=== PATIENT | female | born 1950 | race American Indian/Alaskan Native ===

== ENCOUNTER 2018-04-23 16:41 | Emergency (ER) | payer MEDICARE ==
[2018-04-23 18:33] LABS: Hematocrit 33.5 % (30.3-42.9); Hemoglobin 10.8 gm/dl (10.1-14.3); Mean Corpuscular HGB Conc 32 % (30-34); Mean Corpuscular Hemoglobin 27 pg (28-32); Mean Corpuscular Volume 84 fl (79-97); Platelet Count 296 K/mm3 (140-440); Red Blood Count 3.99 M/mm3 (3.65-5.03); Red Cell Distribution Width 15.3 % (13.2-15.2)
[2018-04-23 18:42] LABS: INR 0.98 (0.87-1.13); Partial Thromboplastin Time 22.9 Sec. (24.2-36.6)
[2018-04-23 19:03] LABS: Albumin 4.5 g/dL (3.9-5); Calcium 9.8 mg/dL (8.4-10.2)
--- NOTE | 2018-04-23 19:18 | Cat Scan Report ---
FINAL REPORT EXAM: CT HEAD/BRAIN WO CON HISTORY: head injury,+loc TECHNIQUE: Standard unenhanced CT of the head at 5.0 millimeter axial increments. PRIORS: None. FINDINGS: The ventricular system is normal in size and configuration. There is no evidence for parenchymal volume loss. There is no evidence for mass lesion, mass effect, midline shift, acute intracranial hemorrhage, or acute ischemia/ infarction. No evidence for acute skull fracture is seen. There is scalp swelling over the posterior left parietal region. Visualized paranasal sinuses are clear. IMPRESSION: Scalp swelling over the posterior left parietal region. No acute intracranial process noted.
[2018-04-23] MEDS ORDERED: ZOFRAN ODT PO ONE (19:58)
[2018-04-23] MEDS ORDERED: ALUM-MAG HYDROX-SIMETH 200-200-20MG/5ML PO ONE (19:58)
[2018-04-23] MEDS ORDERED: NORMODYNE PO ONE (20:11)
--- NOTE | 2018-04-23 20:11 | Emergency Department Report ---
ED General Adult HPI - General Chief complaint: Head Injury Stated complaint: HEAD AND STOMACH PAIN Time Seen by Provider: 04/23/18 19:42 Source: patient Mode of arrival: Ambulatory Limitations: No Limitations - History of Present Illness Initial comments: Ms. Morocho is a 67 yo female who presents after closed head injury on Friday 2 days prior. She felt so hot in the heat. Subsequently, she had brief loss of consciousness in the driveway hitting her head. left sided posterior hematoma and bleeding resulted. Patient has hx of CVA on ASA and Plavis. She is visiting from [place], [place] to care for her brother who has had CVA. She has n/v. Feels weak. Unable to keep down food. Posterior moderately severe headache. No chest pain. No palpitations. Severity scale (0 -10): 0 - Related Data Previous Rx's Medication Instructions Recorded Last Taken Type Ondansetron [Zofran Odt] 4 mg PO TID PRN #10 tab.rapdis 04/23/18 Unknown Rx Allergies Allergy/AdvReac Type Severity Reaction Status Date / Time No Known Allergies Allergy Unverified 04/23/18 17:30 ED Review of Systems ROS: Stated complaint: HEAD AND STOMACH PAIN Other details as noted in HPI Comment: All other systems reviewed and negative Constitutional: malaise. denies: fever Respiratory: denies: cough Cardiovascular: denies: chest pain ED Past Medical Hx - Past Medical History Previous Medical History?: Yes Hx Hypertension: Yes Hx CVA: Yes - Surgical History Past Surgical History?: Yes - Social History Smoking Status: Never Smoker Substance Use Type: None - Medications Home Medications: Home Medications Medication Instructions Recorded Confirmed Last Taken Type Ondansetron [Zofran Odt] 4 mg PO TID PRN #10 tab.rapdis 04/23/18 Unknown Rx ED Physical Exam - General Limitations: No Limitations General appearance: alert, in no apparent distress - Head Head exam: Present: normocephalic, other (2 cm small occipital hematoma no active bleeding) - Eye Eye exam: Present: normal appearance - ENT ENT exam: Present: mucous membranes moist - Neck Neck exam: Present: normal inspection. Absent: tenderness, meningismus - Respiratory Respiratory exam: Present: normal lung sounds bilaterally. Absent: respiratory distress, wheezes, rales, rhonchi - Cardiovascular Cardiovascular Exam: Present: regular rate, normal rhythm, normal heart sounds. Absent: bradycardia, tachycardia, systolic murmur, diastolic murmur, rubs, gallop - GI/Abdominal GI/Abdominal exam: Present: soft, normal bowel sounds. Absent: distended, tenderness, guarding, rebound - Extremities Exam Extremities exam: Present: normal inspection - Back Exam Back exam: Present: normal inspection - Neurological Exam Neurological exam: Present: alert, oriented X3, CN II-XII intact, normal gait, other (steady gait ). Absent: motor sensory deficit - Psychiatric Psychiatric exam: Present: normal affect, anxious - Skin Skin exam: Present: warm, dry, intact, normal color. Absent: rash ED Course Vital Signs 04/23/18 04/23/18 04/23/18 17:26 17:36 18:00 Temperature 98.1 F Pulse Rate 72 65 69 Respiratory 16 16 17 Rate Blood Pressure 190/81 156/69 Blood Pressure [Left] O2 Sat by Pulse 98 95 Oximetry 04/23/18 04/23/18 04/23/18 18:28 18:31 19:00 Temperature 98.7 F Pulse Rate 61 67 Respiratory 15 15 15 Rate Blood Pressure 165/77 Blood Pressure 156/69 [Left] O2 Sat by Pulse 98 98 95 Oximetry 04/23/18 04/23/18 04/23/18 20:01 21:00 21:07 Temperature Pulse Rate 79 59 L 73 Respiratory 14 17 Rate Blood Pressure 170/71 154/64 154/64 Blood Pressure [Left] O2 Sat by Pulse 98 95 Oximetry ED Medical Decision Making - Lab Data Result diagrams: 04/23/18 18:03 04/23/18 18:03 - Medical Decision Making 1. Closed Head Injury due to head trauma mild concussive symptoms. She tolerated PO in the ED. Repeat BP improved. 2. SYncope due to vasovagal reaction and heat exposure, I do not suspect ACS or arrhythmia or PE, only brief LOC rx: zofran Critical care attestation.: If time is entered above; I have spent that time in minutes in the direct care of this critically ill patient, excluding procedure time. ED Disposition Clinical Impression: Concussion, Hypertensive urgency Disposition: DC-01 TO HOME OR SELFCARE Is pt being admited?: No Does the pt Need Aspirin: No Condition: Stable Instructions: Concussion (ED) Prescriptions: Ondansetron [Zofran Odt] 4 mg PO TID PRN #10 tab.rapdis PRN Reason: Nausea And Vomiting Time of Disposition: 21:46
[2018-04-23 22:21] VITALS: BP 150/67
== END 2018-04-23 22:20 | disposition home or self-care (01) ==
LOC: ED 16:41
DX: S06.0X9A Concussion with loss of consciousness of unspecified duration, initial encounter (principal); I10 Essential (primary) hypertension; Z86.73 Personal history of transient ischemic attack (TIA), and cerebral infarction without residual deficits; X58.XXXA Exposure to other specified factors, initial encounter; Y93.89 Activity, other specified; Y92.89 Other specified places as the place of occurrence of the external cause; Y99.8 Other external cause status
CPT/HCPCS: 36415; 70450; 80053; 85027; 85610; 85730; Q0162